=== PATIENT | male | born 1955 | race Caucasian/White ===

== ENCOUNTER → 2019-01-09 | Outpatient (CLI) | payer BC ==
--- NOTE | 2019-01-09 10:09 | XR ---
EXAMINATION TYPE: XR shoulder complete RT DATE OF EXAM: 01/09/2019 CLINICAL HISTORY: Pain down right arm. TECHNIQUE: Three views of the right shoulder are obtained. COMPARISON: None. FINDINGS: There is no acute fracture/dislocation evident in the right shoulder. Mild to moderate lilibeth rowing and spurring of acromioclavicular joint. Mild to moderate narrowing with mild inferior glenoid spurring glenohumeral joint. The visualized ribs are intact and unremarkable. IMPRESSION: As above.
--- NOTE | 2019-01-09 10:11 | XR ---
EXAMINATION TYPE: XR cervical spine comp DATE OF EXAM: 01/09/2019 TECHNIQUE: Frontal, lateral, oblique, and open mouth view of the cervical spine are obtained. HISTORY: M54.2 Neck pain pain down right arm. COMPARISON: None FINDINGS: The cervical spine is visualized from C1 thru the inferior C7 level, there is slight grade 1 retrolisthesis C5 on C6. The pre-vertebral soft tissue appears within normal limits. The C1-C2 a rticulation is within normal limits on the open mouth view. Vertebral body heights are maintained. Mi ld to moderate disc space narrowing C5-C6 level. Prominent anterior inferior spur C6 level. The obli que images show right-sided neural foraminal narrowing C3-C4 and to lesser degree C5-C6 level due to uncovertebral facet spurring. There is additional mild to moderate multilevel lateral spurring. Overl george soft tissue is unremarkable. IMPRESSION: As above.
== END | disposition home or self-care (01) ==
LOC: RADXRMAIN 09:11
PROVIDERS: ATTEND Internal Medicine
DX: M99.71 Connective tissue and disc stenosis of intervertebral foramina of cervical region (principal); M48.02 Spinal stenosis, cervical region; M43.12 Spondylolisthesis, cervical region; M25.811 Other specified joint disorders, right shoulder
CPT/HCPCS: 72050

== ENCOUNTER → 2019-03-30 | Day surgery (SDC) | payer BC ==
[2019-03-29 08:42] VITALS: BMI 28.7
[~2019-03-30] MED LIST: LACTATED RINGERS 1,000 ML IV SCH; LIDOCAINE 1% 20 ML VIAL (10MG/ML) FOR IV START INTRADERMA PRN; PROPOFOL 10 MG/ML 20 ML VIAL IV ONE
[2019-03-30 08:11] VITALS: TEMP 98.7
--- NOTE | 2019-03-30 08:50 | P.PCN ---
Date of Procedure: 03/30/19 Procedure(s) Performed: BRIEF HISTORY: Patient is a 64-year-old pleasant male scheduled for an elective colonoscopy as a part of evaluation of prior history of colon polyps. Last colonoscopy was 5 years ago. PROCEDURE PERFORMED: Colonoscopy with biopsy. PREOPERATIVE DIAGNOSIS: History of colon polyps. IV sedation per Anesthesia. PROCEDURE: After informed consent was obtained, the patient, was brought into the endoscopy unit. IV sedation was administered by Anesthesia under continuous monitoring. Digital rectal examination was normal. Initially the Olympus CF-160 flexible video colonoscope was then inserted in the rectum, gradually advanced into the cecum without any difficulty. Careful examination was performed as the scope was gradually being withdrawn. Ileocecal valve and the appendiceal orifice were visualized and appeared normal. Prep was excellent. Mucosa of the cecum, ascending colon, transverse colon, descending colon, sigmoid colon, and rectum appeared normal. In the mid rectum there was a 3-4 mm sessile polyp that was removed by cold biopsy. Scattered sigmoidal diverticulosis seen. Retroflexion was performed in the rectum and no lesions were seen. The patient tolerated the procedure well. IMPRESSION: 3-4 mm sessile mid rectal polyp status post removal by cold biopsy Scattered sigmoidal diverticulosis. RECOMMENDATIONS: Findings of this examination were discussed with the patient as well as his family. He was advised to follow with the biopsy results and hav e a repeat surveillance colonoscopy in 55 years from now.
[2019-03-30 08:55] VITALS: RESP 16
[2019-03-30 09:14] VITALS: BP 139/86; PULSE 48
== END ==
LOC: ORWHC2ENDO 07:41
PROVIDERS: ATTEND Internal Medicine Gastroenterology
DX: Z12.11 Encounter for screening for malignant neoplasm of colon (principal); K62.1 Rectal polyp; K57.30 Diverticulosis of large intestine without perforation or abscess without bleeding; Z86.010 Personal history of colon polyps; I10 Essential (primary) hypertension; E78.5 Hyperlipidemia, unspecified; Z79.899 Other long term (current) drug therapy
CPT/HCPCS: 88305; 45380; J2704

== ENCOUNTER → 2021-03-23 | Outpatient (CLI) | payer BC ==
--- NOTE | 2021-03-23 09:53 | P.PAINCN ---
History of Present Illness - Reason for Consult Consult date: 03/23/21 - History of Present Illness This 66 years old male with a chronic history of severe neck pain started 2 years ago, he denies any initiating event he denies any history of trauma or heavy lifting, he reported that he had the symptoms started while he was driving his car , patient had cervical epidural steroid injection done 2 years ago he gets excellent pain relief, he did very well until January 2021 when he started having the same symptoms, patient reported that the pain is constant and increases with any neck movement interfere with the quality of life, he denies any change in the bowel movement or urination he denies any fever or night sweats he denies any motor or sensory deficit, Past Medical History Past Medical History: Cancer, Hyperlipidemia, Hypertension Additional Past Medical History / Comment(s): NECK PAIN , SKIN CANCER History of Any Multi-Drug Resistant Organisms: None Reported Additional Past Surgical History / Comment(s): COLONOSCOPY, RIGHT KNEE ARTHROSCOPIC, Past Anesthesia/Blood Transfusion Reactions: No Reported Reaction Past Psychological History: No Psychological Hx Reported Past Alcohol Use History: Daily Additional Past Alcohol Use History / Comment(s): 2 DRINKS A DAY Past Drug Use History: None Reported - Past Family History Mother Family Medical History: Cancer Additional Family Medical History / Comment(s): BREAST CANCER Sister(s) Family Medical History: Cancer Additional Family Medical History / Comment(s): SKIN CANCER Medications and Allergies Home Medications Medication Instructions Recorded Confirmed Type Atorvastatin [Lipitor] 10 mg PO HS 03/29/19 03/30/19 History atenoloL [Tenormin] 12.5 mg PO BID 03/29/19 03/30/19 History Allergies Allergy/AdvReac Type Severity Reaction Status Date / Time No Known Allergies Allergy Verified 03/30/19 07:54 Physical Exam Vitals: Intake and Output 03/22/21 03/23/21 03/23/21 22:59 06:59 14:59 Other: Weight 104.326 kg Physical Examinations : -Constitutiona : Cooperative , not in acute distress . -HEENT : nech : supple , no Lymphadenopathy , normal thyroid size . : eyes : no ptosis , no icterus, no photophobia . - neurologic : Cranial nerve II to XII intact , no focal neurological deffecit . -psychatric : alert , oriented X 3 , appropriate affect , intact judgment and insight . -Lymphatic : no Lymphadenopathy . - musculoskeltal : Cervical Spine motor stregnth in the deltoid and biceps, normal right side , normal Left side motor stregnth biceps and the wrist extensors normal right side ,normal left side . motor stregnth in the triceps muscle . normal Right side , normal Left side deep tendon reflexes normal at the biceps , normal at Brachioradialis , normal at triceps. cervical facet loading test: Positive Bilaterally Spurling test= positive Right , positive left. Neck distraction test= positive Right , positive left. Sarina sign= positive right, positive left . Lumber spine moter stegnth lower extremities ,thigh and legs 5/5 Right side , 5/5 Left side Results Comments: Right of the cervical spine C3 4 disc bulging and foraminal stenosis sit joint arthropathy C4 5 foraminal stenosis and facet joint arthropathy C5 6 foraminal stenosis and facet joint hypertrophy at C6 7 disc bulging and facet joint arthropathy Assessment and Plan Plan: Assessment and plan=1-cervical degenerative disc disease. 2 cervical foraminal stenosis. 3-cervical spondylosis with cervical facet arthropathy. Patient could benefit from cervical epidural steroid injection at C7-T1. If patient continues to have severe neck pain after cervical epidural steroid injections,then we will consider doing diagnostic medial branch block cervical area Time with Patient: Greater than 30 PQRS Measure Charge Sheet Measure #130: Documentation of Current Meds in Medical Chart: Patient's medications documented in chart Measure #226: Tobacco Use: Screen & Cessation Intervention: Pt not a tobacco use r Measure #111: Pneumonia Vaccination: Pneumococcal vaccine NOT administered or previously given Measure #47: Advance Care Plan: Advance care planning discussed & documented, pt chose/unable to give Measure #412: Opioid Treatment Agreement: No documentation of signed opioid treatment agreement Measure #408: Opioid Therapy Follow-up Evaluation: Patient had NO f/u eval minimum every 3 months during opioid therapy Measure #317: Preventitive Care & Scrn High Bld Press & F/U: Pre-hypertensive or hypertensive BP documented, pt will f/u with PCP Measure #128: Body Mass Index (BMI) Screening & Follow-up: BMI documented ABOVE normal parameters - f/u documented Measure #131: Pain Assessment & Follow-up: Pain positive & plan documented, Follow-up scheduled Measure #431: Unhealthy Alcohol Use Preventative Care & Scrn: Patient not identified as an unhealthy alcohol user PQRS Narrative: Smoking Status Never smoker Home Medications: Ambulatory Orders Atorvastatin [Lipitor] 10 mg PO HS 03/29/19 atenoloL [Tenormin] 12.5 mg PO BID 03/29/19
[2021-03-23 10:03] VITALS: BP 162/70; PULSE 63; RESP 18; TEMP 98.6
== END ==
LOC: PNWHC3 08:49
PROVIDERS: ATTEND Specialist
DX: M50.30 Other cervical disc degeneration, unspecified cervical region (principal); M48.02 Spinal stenosis, cervical region; M47.812 Spondylosis without myelopathy or radiculopathy, cervical region; E78.5 Hyperlipidemia, unspecified; I10 Essential (primary) hypertension
CPT/HCPCS: 99211

== ENCOUNTER 2021-04-14 10:01 | Day surgery (SDC) | payer BC ==
[2021-04-14 10:26] VITALS: RESP 16; TEMP 98.9
[2021-04-14] MEDS ORDERED: LACTATED RINGERS 1,000 ML IV ONE (10:30)
[2021-04-14] MEDS ORDERED: DEXAMETHASONE SOD PHOSPHATE 10 MG/ML 1 ML VIAL ONE (10:54)
[2021-04-14] MEDS ORDERED: MIDAZOLAM 2 MG/2 ML VIAL ONE (10:54)
[2021-04-14] MEDS ORDERED: IOPAMIDOL M200 10 ML VIAL ONE (10:54)
[2021-04-14] MEDS ORDERED: fentaNYL (PF) 50 MCG/ML 2 ML AMP ONE (10:54)
[2021-04-14] MEDS ORDERED: LACTATED RINGERS 1,000 ML IV SCH (11:00)
--- NOTE | 2021-04-14 11:07 | P.PCN ---
Date of Procedure: 04/14/21 Description of Procedure: Pre- and Post-operative Diagnosis: Cervical degenerative disc disease, and Cervical radiculopathy Procedure: C7-T1 Inter-Laminar Cervical Epidural Steroid Injection under biplanar fluoroscopy Surgeon: Leatha Dolan Anesthesia: Local: 1% Lidocaine, IV sedation : Midazolam 2 mg, and fentanyl 100 g. Complications: None. Estimated blood loss: None Specimens removed: None Fluoroscopic image: saved to electronic medical records. Indications for Procedure: The patient has been suffering from neck pain and pain radiating to the upper extremity sometimes . Inadequate pain control with pharmacologic regimen. An inter-laminar approach cervical epidural steroid injection was scheduled for the patient. Procedure and Findings: The patient was seen and examined in the holding area. The written informed consent was obtained after explaining the risks, benefits, alternatives of the procedure to the patient. The patient was brought to the procedure room and was placed in the prone position on the operating table. A pillow was placed under the upper chest. Standard anesthesia monitoring was done through out the procedure. Timeout was completed. The skin preparation was done with ChloraPrep 1 and draping was done in usual sterile fashion. Sterile technique was observed throughout the procedure. Under fluoroscopic guidance, the C7-T1 inter-laminar space was identified. 3 ml of 1% Lidocaine was injected with a 25 gauge needle to achieve adequate local anesthesia of the skin and subcutaneous tissue. A 20 gauge, 3.5 inch Tuohy type epidural needle was placed and gradually advanced up to the epidural space using loss of resistance technique and fluoroscopic guidance. Lateral, oblique fluoroscopic views confirm the needle position. No paresthesia was noted. A negative aspiration was confirmed and then 1 ml of Isovue-200 was injected. A good dye spread was seen in the epidural space and it was negative for any intrathecal, intraneural or intravascular spread. A total of 6 ml solution containing 20 mg Dexamethasone, and 4 ml preservative-free Normal Saline was injected slowly with intermittent aspiration. The needle was removed intact, area was cleaned and bandage was applied. Disposition : The patient tolerated the procedure very well. The patient was transferred to the recovery room and remained stable until discharged home. The patient was given detailed discharge instructions for bleeding, infection, increased pain at the injection site, and was advised to seek immediate medical attention should significant side effects develop. The patient will be followed up with our Pain [facility] within 4 weeks for follow-up visit.
[2021-04-14] MEDS ORDERED: IV FLUID CONTINUATION 800 ML IV ONE (11:16)
[2021-04-14 11:24] VITALS: BP 153/87; PULSE 52
== END 2021-04-14 11:41 | disposition home or self-care (01) ==
LOC: ORPAIN 10:01
DX: M50.10 Cervical disc disorder with radiculopathy, unspecified cervical region (principal); I10 Essential (primary) hypertension; E78.00 Pure hypercholesterolemia, unspecified; M19.90 Unspecified osteoarthritis, unspecified site; Z79.899 Other long term (current) drug therapy
CPT/HCPCS: 62321; J2250; J1100; J3010; Q9966; 99152